=== PATIENT | male | born 1960 | race Caucasian/White ===

== ENCOUNTER 2024-02-06 02:30 | Outpatient (CLI) | payer OTHER, SELFPAY ==
--- NOTE | 2024-02-06 | DI.MRI_ITS ---
Exam(s) MR UPPER JOINT RT WO EXAM: MR UPPER JOINT RT WO CLINICAL HISTORY: S/P SHOULDER SURGERY, Z98.890. TECHNIQUE: Multiplanar multisequence MRI was performed. COMPARISON: None FINDINGS: BONES: Multiple screws in humeral head. Humeral head articulates with the undersurface of the acromi on. JOINTS:The acromioclavicular joint shows mild inferior spurring. The glenohumeral joint is normal. TENDONS: Supraspinatus: Full-thickness tear with retraction to the level of the AC joint. Infraspinatus: Full-thickness tear with retraction. Subscapularis: Torn and retracted. Teres Minor: Unremarkable. Biceps and [place]: Biceps tendon not seen. Probable prior biceps tenodesis. MUSCLES: Severe atrophy of the supraspinatus, infraspinatus and subscapularis muscles. Moderate atro phy of the teres minor muscle. GLENOID LABRUM: Unremarkable on this noncontrast examination. SOFT TISSUES: Artifacts related to prior surgery. OTHER: Subacromial and subdeltoid bursae . IMPRESSION: Full-thickness tears with retraction of the supraspinatus, infraspinatus and subscapularis tendons. Severe muscle atrophy also present. DATA REPOSITORY:
== END 2024-02-06 02:50 ==
LOC: DI 02:30
PROVIDERS: Visit Provider Orthopaedic Surgery Hand Surgery
DX: M75.121 Complete rotator cuff tear or rupture of right shoulder, not specified as traumatic (principal)
CPT/HCPCS: 73221

== ENCOUNTER 2024-11-06 03:19 | Outpatient (CLI) | payer OTHER, SELFPAY ==
--- NOTE | 2024-11-06 | DI.RAD_ITS ---
Exam(s) XR KNEE LT 3V AP,LAT,BISI EXAM: XR KNEE LT 3V AP,LAT,BISI CLINICAL HISTORY: BILAT KNEE PAIN, Z02.71,. TECHNIQUE: 2D digital imaging was performed. Three views. COMPARISON: CR XR KNEE RT 3V AP,LAT,BISI from 11/06/2024 FINDINGS: BONES: No acute fracture is present. No bony destructive lesion is seen. JOINTS: The joint spaces are maintained. The knee is normally aligned. No joint effusion is seen. SOFT TISSUE: Normal. IMPRESSION: Normal radiographs of the left knee. DATA REPOSITORY: RADIATION DOSE DELIVERED:
--- NOTE | 2024-11-06 | DI.RAD_ITS ---
Exam(s) XR KNEE RT 3V AP,LAT,BISI EXAM: XR KNEE RT 3V AP,LAT,BISI CLINICAL HISTORY: BILAT KNEE PAIN, Z02.71. TECHNIQUE: 2D digital imaging was performed. Three views. COMPARISON: No exams were available for comparison FINDINGS: BONES: No acute fracture is present. No bony destructive lesion is seen. JOINTS: Mild narrowing of the medial femoral tibial joint space and minimal spurring at the medial femoral condyle. Minimal spurring at the articular aspect of the patella. The knee is normally aligned. No joint effusion is seen. SOFT TISSUE: Normal. IMPRESSION: Mild degenerative changes. DATA REPOSITORY: RADIATION DOSE DELIVERED:
--- NOTE | 2024-11-06 | DI.RAD_ITS ---
Exam(s) XR LUMBAR SPINE COMPLETE EXAM: XR LUMBAR SPINE COMPLETE CLINICAL HISTORY: LOW BACK PAIN, Z02.71. TECHNIQUE: 2D digital imaging was performed. Five views. COMPARISON: No exams were available for comparison FINDINGS: BONES: No fracture or destructive lesion. Vertebral body heights are maintained. There are mild endplate osteophytes. Mild facet hypertrophy identified at L4-5 and L5-S1. DISKS: There is minimal narrowing of the L2-3 disc space and small endplate osteophytes. The remaining intervertebral disc spaces are maintained. ALIGNMENT: Lumbar spinal alignment is within normal limits. SOFT TISSUE: Normal. IMPRESSION: Mild degenerative changes at L2-3 disc and of the facets at L4-5 and L5-S1. DATA REPOSITORY: RADIATION DOSE DELIVERED:
== END 2024-11-06 03:39 ==
LOC: DI 03:20
PROVIDERS: Visit Provider Pediatrics Pediatric Rheumatology
DX: Z02.71 Encounter for disability determination (principal); M25.562 Pain in left knee; M25.561 Pain in right knee; M51.362 Other intervertebral disc degeneration, lumbar region with discogenic back pain and lower extremity pain
CPT/HCPCS: 73562; 72110